=== PATIENT | male | born 1955 | race Caucasian/White ===

== ENCOUNTER 2016-07-31 11:23 | Outpatient (CLI) | payer BC ==
[~2016-07-31] VITALS: Ht 190.5 cm; Wt 102.1 kg
--- OUTSIDE RECORDS SUMMARY | 2016-07-31 11:27 | XMS REPORT | Continuity of Care Document ---
Author Author [facility] Organization [facility] Address Unknown Phone Unavailable Care Team Providers Care Work Force Advisor Name Role Phone DAGOBERTO SILVA MD PCP Insurance Providers Payer Name Policy Number Subscriber Name Relationship [facility] [id number] Kapil Bowens 18 Self / Same As Patient Advance Directives Directive Response Recorded Date/Time Advance Directives No 07/03/16 9:13am Health Care Power of Shop Tech No 07/03/16 9:13am Organ Donor No 07/03/16 9:13am Resuscitation Status Full Code 07/03/16 9:13am Problems No problem information available. Medications No medication information available. Social History Social History Problem Response Recorded Date/Time Recent Foreign Travel No 07/03/2016 8:39am Hospital Discharge Instructions No hospital discharge instructions. Plan of Care Discharge Date 07/03/16 9:45am Instructions/Education Provided DR. SHABAZZ-POST EPIDURAL INST Prescriptions See Medication Section Functional Status No functional status results. Allergies, Adverse Reactions, Alerts No allergy information available. Immunizations No immunization records. Vital Signs Acute Vital Signs Vital Response Date/Time Temperature (Fahrenheit) 97.9 degrees F (97.6 - 99.5) 07/03/2016 9:20am Temperature (Calculated Celsius) 36.12343 degrees C (36.4 - 37.5) 07/03/2016 9:20am Temperature Source Tympanic 07/03/2016 9:20am Pulse Rate (adult) 72 bpm (60 - 90) 07/03/2016 9:43am O2 Sat by Pulse Oximetry 99 % (88 - 100) 07/03/2016 9:43am Blood Pressure 185/97 mm Hg 07/03/2016 9:43am Blood Pressure Mean 126 mm Hg 07/03/2016 9:20am Pain Numeric Pain Scale 5-Moderate Pain 07/03/2016 9:43am Height (Feet) 6 feet 07/03/2016 9:20am Height (Inches) 3.00 inches 07/03/2016 9:20am Height (Calculated Centimeters) 190.282305 cm 07/03/2016 9:20am Weight (Pounds) 225 pounds 07/03/2016 9:20am Weight (Ounces) 0.0 oz 07/03/2016 9:20am Weight (Calculated Grams) 775219.28 gm 07/03/2016 9:20am Weight (Calculated Kilograms) 102.441169 kilograms 07/03/2016 9:20am Calculated BMI 28.1 07/03/2016 9:20am Results No known relevant diagnostic tests, laboratory data and/or discharge summary. Procedures No known history of procedures. Encounters Encounter Location Arrival/Admit Date Discharge/Depart Date Attending Provider Departed Clinic [facility] 07/03/16 8:42am 07/03/16 9: 45am JUDITH SHABAZZ MD
[2016-07-31] MEDS ORDERED: BUPIVACAINE 0.25% 30 ML (SENSORCAINE) VIAL ONE (11:51)
[2016-07-31] MEDS ORDERED: TRIAMCINOLONE ACET (KENALOG-40) 40 MG/ML 1 ML VIAL ONE (11:51)
[2016-07-31 12:16] VITALS: BP 147/91
[2016-07-31 12:46] VITALS: BP 164/90
--- NOTE | 2016-07-31 14:00 | Pain Medicine-Procedure ---
Procedure Pre-Op/Post-Op Diagnosis Diagnosis: disc disorder with radiculopathy, lumbar Indications for Operation Low back pain Attending Surgeon Tyrel Procedure Date of Service: Jul 31, 2016 PROCEDURE: Caudal Epidural Steroid Injection with catheter under Flouroscopic Guidance PROCEDURE NOTE: After obtaining written informed consent patient was taken to the procedure room. Vital signs were monitored through out the procedure. A time out was performed. The patient was placed in the prone position on fluoroscopy table. The lower back above the caudal space was prepped with chloraprep and draped in the usual sterile fashion. The skin over the sacral hiatus was identified under fluoroscopic guidance and infiltrated with 1% lidocaine for local anesthesia via 25 gauge needle. An 17-gauge epimed needle was used to access the epidural space under fluoroscopic guidance and was then advanced into the epidural space under fluoroscopic guidance in the AP view. The epimed catheter was then advanced under flourospopic guidance to the L5-S1 interspace. There was no paresthesia with catheter placement. After negative aspiration 1 cc of the contrast dye was injected through the needle with good spread of the medication in the epidural space at the appropriate levels. Again, after negative aspiration, 80 mg of kenalog with 2 cc of 0.25% marcaine and 2 mL's of preservative free normal saline was injected. There was no evidence of CSF, paresthesia or heme during the procedure. The catheter and needle were withdrawn as a unit and the tip was noted to be intact upon removal. Skin was cleaned and a sterile dressing was applied. Following the procedure the patient's vital signs were stable. The patient was discharged home after a brief period of observation with no new neuologic deficits. Complications None JUDITH SHABAZZ MD Jul 31, 2016 2:00 pm
== END 2016-07-31 12:47 | disposition home or self-care (01) ==
LOC: CARD 11:23
PROVIDERS: ATTEND Pain Medicine Pain Medicine
DX: M51.16 Intervertebral disc disorders with radiculopathy, lumbar region (principal); Z79.899 Other long term (current) drug therapy
CPT/HCPCS: 62323

== ENCOUNTER → 2021-05-12 | Outpatient (CLI) | payer BC | LOC: CARD 12:48 | PROVIDERS: ATTEND Internal Medicine Cardiovascular Disease | DX: I11.9 Hypertensive heart disease without heart failure (principal); I25.10 Atherosclerotic heart disease of native coronary artery without angina pectoris | CPT/HCPCS: 93306 ==

== ENCOUNTER → 2021-05-13 | Outpatient (CLI) | payer BC ==
[~2021-05-13] VITALS: Ht 193 cm; Wt 111.0 kg
[~2021-05-13] MED LIST: CATHETER FLUSH 10 ML SYR IV PRN
[2021-05-13 07:57] VITALS: BP 156/74
--- NOTE | 2021-05-14 08:24 | Cardiology Stress Test Report ---
Stress Test Report Date of Procedure/Referring: Date of Procedure: May 14, 2021 PCP Aleksandra Gilbert MD Admitting Physician Roxanne Roman MD Indications: CAD Baseline Heart Rate: 72 Baseline Blood Pressure: Blood Pressure Systolic: 156 Blood Pressure Diastolic: 74 Vital Signs Date Time Temp Pulse Resp B/P (MAP) Pulse Ox O2 Delivery O2 Flow Rate FiO2 05/13/21 07:57 84 18 156/74 (101) 98 Room Air Baseline Vital Signs Vital Signs Date Time Temp Pulse Resp B/P (MAP) Pulse Ox O2 Delivery O2 Flow Rate FiO2 05/13/21 07:57 84 18 156/74 (101) 98 Room Air Baseline EKG: Baseline EKG: NSR Summary: After explaining the procedure and details to the patient, he signed the consent and was brought to the stress nuclear laboratory. Patient exercised on standard Vernon protocol, EKG, heart rate and blood pressure were monitored continuously, resting and stress doses of radio tracer were injected, imaging was acquired and reviewed in the short axis, horizontal long axis and vertical long axis views Patient was able to exercise for a total of 4.3 minutes on Vernon protocol, METs 6.4 Maximum heart rate 142 Maximum blood pressure 208/93 Stress EKG, Minimal nondiagnostic changes Recovery EKG, Return to baseline TID: 1.01 SSS: 0 SDS: 0 EF: 72 Conclusion: 1. Good exercise tolerance for 4-minute 30 seconds on standard Vernon protocol, 6.4 METS achieving 91% of maximal expected heart rate 2. Appropriate heart rate response to exercise with hypertensive response to exercise with peak blood pressure 208/93 return to baseline during recovery 3. Minimal nondiagnostic EKG changes with exercise return to baseline during recovery 4. No ischemia or infarction on SPECT images 5. Normal left ventricular size, EF 72% ALEKSANDRA GILBERT MD May 14, 2021 08:24
== END ==
LOC: CARD 07:00
PROVIDERS: ATTEND Internal Medicine Cardiovascular Disease
DX: I25.10 Atherosclerotic heart disease of native coronary artery without angina pectoris (principal); I10 Essential (primary) hypertension
CPT/HCPCS: 78452; 93017; A9502

== ENCOUNTER 2021-05-21 10:00 | Day surgery (SDC) | payer BC ==
[~2021-05-21] VITALS: Ht 193 cm; Wt 111.0 kg
[2021-05-21] VITALS (10 sets, daily range): BP systolic 100–143; BP diastolic 62–88
[2021-05-21 08:59] LABS: HEMATOCRIT 49 % (40-54); HEMOGLOBIN 16.5 g/dL (13.3-17.7); MEAN CORPUSCULAR HEMOGLOBIN 32 pg (25-34); MEAN CORPUSCULAR HGB CONC 34 g/dL (32-36); MEAN CORPUSCULAR VOLUME 96 fL (80-99); PLATELET COUNT 270 10^3/uL (130-400); WHITE BLOOD COUNT 7.1 10^3/uL (4.3-11.0)
--- NOTE | 2021-05-21 09:10 | Diagnostic Imaging Report ---
INDICATION: Preop. Peripheral arterial disease Upright portable chest shows normal heart size and vascularity. The lungs are clear. There is no effusion or pneumothorax. There is no bony abnormality. IMPRESSION: Normal portable chest. Dictated by: Dictated on workstation # [id number]
[2021-05-21 09:14] LABS: INR 0.9 (0.8-1.4); PROTHROMBIN TIME PATIENT 12.7 SEC (12.2-14.7)
[2021-05-21 09:20] LABS: ALBUMIN 4.5 GM/DL (3.2-4.5); BILIRUBIN,TOTAL 0.5 MG/DL (0.1-1.0); CREATININE SERUM 1.07 MG/DL (0.60-1.30); POTASSIUM 4.3 MMOL/L (3.6-5.0); TOTAL PROTEIN 8.1 GM/DL (6.4-8.2)
[~2021-05-21 10:00] MED LIST changes: +ASPI-999 PO; -CATHETER FLUSH 10 ML SYR IV PRN; +HEParin (CATH LAB) 2,000 ML IV ONE; +HYDR12.56 PO; +LIDOCAINE 1% INJ 20 ML 20 ML VIAL ONE; +LISI20TA26 PO; +NS IV 1000 ML 1,000 ML IV SCH; +NS IV 1000 ML 1,000 ML ONE; +SIMV20TA26 PO
[2021-05-21] MEDS ORDERED: MIDAZOLAM 5 MG/5 ML (VERSED) VIAL ONE (10:27)
[2021-05-21] MEDS ORDERED: fentaNYL INJ 100 MCG/2 ML AMP ONE (10:27)
[2021-05-21] MEDS ORDERED: NS IV 1000 ML 1,000 ML IV SCH (11:15)
[2021-05-21] MEDS ORDERED: ATOR20TA49 PO (11:15)
[2021-05-21] MEDS ORDERED: PATIENT MAY USE OWN MEDS, ALL PO SCH (11:15)
--- NOTE | 2021-05-21 11:16 | Discharge Inst-Post CATH ---
Discharge Inst-CATH/EP Problems Reviewed?: Yes Post Cardiac Cath/EP D/C Inst Follow Up/Plan Appointment with Dr. Gilbert's office in 4 weeks <b>CARDIAC CATH/EP PROCEDURE DISCHARGE INSTRUCTIONS</b> ACTIVITY * Go Home directly and rest. * Limit activity of the leg (or wrist if it was used) for 7 days including aerobics, swimming, jogging, bicycling, etc. * Restrict stair-climbing for 7 days if possible, if not, climb up with your non-cath leg, then bring together on the same step. * Avoid lifting, pushing, pulling or excessive movement of the affected extremity for 7 days. * Customary sexual activity may be resumed after 2 days-use caution not to use a position that strains or causes pain to the affected extremity. * No driving for 24 hours. * NO SMOKING. * Avoid straining for bowel movements for 7 days. * Gentle walking on level ground is allowed. * Returning to work will depend on the type of procedure and the results. Your doctor will discuss this with you. CALL YOUR DOCTOR FOR ANY OF THE FOLLOWING: *If bleeding from the puncture site occurs- Apply gentle pressure to site with clean cloth and call your doctor or EMS. * If a knot or lump forms under the skin, increases in size, or causes pain. * If bruising appears to be worsening or moving further down your leg instead of disappearing. * Temperature above 101 F. CARE OF YOUR GROIN INCISION; * Bruising or purple discoloration of the skin near the puncture site is common. * You may shower only, no bathtub bathing for 5 days. Be careful to avoid slipping as your leg may feel stiff. * If a closure device was used on your femoral artery, please see the attached guide regarding care of the device and your leg. * Leave dressing on FOR 24 hours. CARE OF YOUR WRIST INCISION; * Bruising or purple discoloration of the skin near the puncture site is common. * You may shower. * DO NOT submerge wrist. * Leave dressing on FOR 24 hours. ALEKSANDRA GILBERT MD May 21, 2021 11:16
--- NOTE | 2021-05-21 11:23 | Peripheral Report ---
Peripheral Report Physician (s)/Film Flat Inspector (s) Physician ALEKSANDRA BREEN MD Pre-Procedure Diagnosis Pre-Procedure Diagnosis: Claudication Post-Procedure Note Procedure Start Date: May 21, 2021 Name of Procedure: Abdominal aortogram Bilateral lower extremity runoff Third order Additional imaging Findings/Procedure Note PROCEDURE NOTE: 65-year-old gentleman with hypertension, hyperlipidemia, has been having claudication, had borderline GABRIELA and TBI. Scheduled for peripheral angiogram After explaining the procedure to the patient, all pros and cons were explained, all questions were answered. The patient signed the consent and then he was placed on the cardiac catheterization laboratory. The patient was placed on the cardiac catheterization laboratory. Groin was prepped SL fashion local anesthesia was used. Sheath placed in the right femoral artery, runoff to the right lower extremity was done, then DSA imaging was done at the level of the trifurcation and the level of the foot. Rim catheter was used to cross over then a straight catheter was advanced to the tibioperoneal trunk and DSA imaging was done at the level of the trifurcation on the left leg and the level of the foot then pressure was monitored and pullback was done to the left proximal SFA and runoff to the left lower extremity was done then the catheter was removed and a pigtail catheter was placed in the abdominal aorta and abdominal aortogram with evaluation of the bifurcation was done. At the end of the procedure sheath was removed, closure device deployed FINDINGS: Aortogram: Mild atherosclerotic disease in the abdominal aorta, normal renal arteries, normal SMA and JIMBO, normal bifurcation, no obstructive disease Right lower extremity, mild to moderate disease in the mid SFA, occlusion of the posterior tibial artery, the anterior tibial artery is smaller artery trickle down into occlusion distally, the peroneal artery is widely open and providing flow to the foot Left lower extremity, mild to moderate disease down to the trifurcation with good flow down to the foot CONCLUSIONS: 1. 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 2. Mild to moderate disease in the mid right SFA nonobstructive disease 3. Mild to moderate disease at the left lower extremity down to the foot 4. Normal abdominal aorta and renal arteries DISCUSSION AND RECOMMENDATIONS: Maximizing medical therapy, I recommend exercise program and medical therapy unless having an ischemic ulcer. Anesthesia Type: Conscious Sedation Estimated blood loss (mL): 30 ml Contrast Amount: 50 ml Total Radiation Dose: 129 mGy Post-Procedure Diagnosis Post-operative diagnosis: Claudication Peripheral arterial disease Hypertension Hyperlipidemia ALEKSANDRA BREEN MD May 21, 2021 11:23
== END 2021-05-21 14:20 | disposition home or self-care (01) ==
LOC: CATH 10:00 → SDC 11:34 → CATH 14:20
PROVIDERS: ATTEND Internal Medicine Cardiovascular Disease
DX: I70.201 Unspecified atherosclerosis of native arteries of extremities, right leg (principal); I10 Essential (primary) hypertension; I25.10 Atherosclerotic heart disease of native coronary artery without angina pectoris; E78.2 Mixed hyperlipidemia; F17.210 Nicotine dependence, cigarettes, uncomplicated; Z79.82 Long term (current) use of aspirin; Z79.899 Other long term (current) drug therapy; Z83.3 Family history of diabetes mellitus; Z80.9 Family history of malignant neoplasm, unspecified
CPT/HCPCS: 36248; 36415; 71045; 75625; 75716; 80053; 80061; 85027; 85610; 85730; 87081